=== PATIENT | female | born 1995 | race African-American/Black ===

== ENCOUNTER → 2017-09-30 | Outpatient (CLI) | payer OTHER | END | disposition home or self-care (01) | LOC: HKI 09:07 | DX: S83.92XA Sprain of unspecified site of left knee, initial encounter (principal); X58.XXXA Exposure to other specified factors, initial encounter | CPT/HCPCS: 73564; 73564-LT ==

== ENCOUNTER → 2017-10-24 | Outpatient (CLI) | payer OTHER | END | disposition home or self-care (01) | LOC: HKI 13:51 | DX: S83.512D Sprain of anterior cruciate ligament of left knee, subsequent encounter (principal); X58.XXXD Exposure to other specified factors, subsequent encounter | CPT/HCPCS: Z7500 ==

== ENCOUNTER 2018-02-03 06:07 | Day surgery (SDC) | payer OTHER ==
[2018-02-03] MEDS ORDERED: ROPIVACAINE 0.5 % 30 ML VIAL ×3 (06:55→09:51)
[2018-02-03] MEDS ORDERED: NEOMYC/POLYMYX/BACIT 30 GM OINT (07:01)
[2018-02-03] MEDS ORDERED: POLYMYXIN/BACITRACIN 1L IRRIG (07:01)
[2018-02-03] MEDS ORDERED: ROCURONIUM 50 MG INJ ×2 (07:15→08:08)
[2018-02-03] MEDS ORDERED: PROPOFOL 20 ML (07:15)
[2018-02-03] MEDS ORDERED: CEFAZOLIN 1 GM INJ (07:15)
[2018-02-03] MEDS ORDERED: MIDAZOLAM 1 MG/ML 2 ML INJ ×2 (07:16)
[2018-02-03] MEDS ORDERED: ROPIVACAINE 0.2% 20 ML VIAL (07:16)
[2018-02-03] MEDS ORDERED: ACETAMINOPHEN 1000MG/100ML IV 100 ML (08:59)
[2018-02-03] MEDS ORDERED: DEXAMETHASONE 4 MG/ML 1 ML INJ (08:59)
[2018-02-03] MEDS ORDERED: METOCLOPRAMIDE 10 MG INJ (08:59)
[2018-02-03] MEDS ORDERED: KETOROLAC 30 MG INJ (08:59)
[2018-02-03] MEDS ORDERED: ONDANSETRON 4 MG INJ (08:59)
[2018-02-03] MEDS ORDERED: SUGAMMADEX SODIUM 200 MG/2 ML VIAL IV (09:57)
[2018-02-03] MEDS ORDERED: EPHEDrine SULFATE 50 MG/5 ML SYG IV (10:30)
[2018-02-03] MEDS ORDERED: KETOROLAC 30 MG INJ IV (10:30)
[2018-02-03] MEDS ORDERED: DIPHENHYDRAMINE 50 MG INJ IV (10:30)
[2018-02-03] MEDS ORDERED: FENTAnyl 50 MCG/ML VIAL IV ×3 (10:30)
[2018-02-03] MEDS ORDERED: MEPERIDINE 25 MG INJ IV (10:30)
[2018-02-03] MEDS ORDERED: OXYCODONE/ACETAMINOPHEN (5/325) TAB PO ×2 (10:30)
[2018-02-03] MEDS ORDERED: HYDROmorphONE 1 MG/5 ML IV SYRINGE IV ×3 (10:30)
[2018-02-03] MEDS ORDERED: morphine 2 MG INJ IV (11:30)
[2018-02-03] MEDS ORDERED: morphine 10 MG INJ IV (11:30)
== END 2018-02-03 12:51 | disposition home or self-care (01) ==
LOC: SDS 06:07
DX: S83.282D Other tear of lateral meniscus, current injury, left knee, subsequent encounter (principal); S83.512D Sprain of anterior cruciate ligament of left knee, subsequent encounter; X58.XXXD Exposure to other specified factors, subsequent encounter
CPT/HCPCS: 29881; 73562